=== PATIENT | female | born 1980 | race Caucasian/White ===

== ENCOUNTER → 2019-02-18 15:43 | Outpatient (CLI) | payer OTHER, SELFPAY ==
[2019-02-12 15:56] VITALS: BMI 26.2
[2019-02-18 16:05] LABS: Absolute Neutrophil Count 4.2 X10^3/uL (2.0-7.7); Basophil# 0.07 X10^3/uL; Basophil% 1.1 % (0-1); Eosinophil# 0.21 X10^3/uL; Eosinophils% 3.2 % (0-5); Hematocrit 41.8 % (37-47); Hemoglobin 14.1 g/dL (12.0-15.0); Mean Corp Hgb Conc 33.7 g/dL (32-36); Mean Corpuscular Hgb 32.1 pg (27.0-32.0); Mean Corpuscular Volume 95.2 fL (81-99); Mean Platelet Vol. 9.1 fl (6.2-12.0); Monocyte# 0.55 X10^3/uL; Monocyte% 8.4 % (0-10); NRBC Flagged by Analyzer 0 % (0-5); Neutrophil # 4.17 X10^3/uL (2.7-7.7); Platelet Count 229 K/mm3 (150-450); RBC Distribution Width CV 11.9 % (11.6-14.6); RBC Distribution Width SD 41.4 fl (35.1-43.9); Red Blood Count 4.39 M/mm3 (4.2-5.4); White Blood Count 6.5 K/mm3 (4.4-11.0)
[2019-02-18 18:04] LABS: AST(SGOT) 132 U/L (15-37); Alanine Aminotransfer ALT/SGPT 130 U/L (13-56); Albumin, Serum 3.8 g/dL (3.2-5.0); Alkaline Phosphatase 81 U/L (45-117); Anion Gap 8 (5-15); BUN 6 mg/dL (7-18); Calcium,Total 8.9 mg/dL (8.5-10.1); Chloride 105 mmol/L (98-107); Creatinine, Serum 0.85 mg/dL (0.55-1.02); EST Glomerular Filtration Rate 80 mL/min (>60); Est Glom Filt Rate - Afr Amer 97 mL/min (>60); Glucose 98 mg/dL (74-106); Potassium 4.4 mmol/L (3.5-5.1); Protein, Total 7.8 g/dL (6.4-8.2); Sodium Level 138 mmol/L (136-145); T4 Free Direct 0.86 ng/dL (0.76-1.46); Thyroid Stim Hormone (TSH) 2.45 uIU/mL (0.358-3.74)
== END ==
PROVIDERS: Family Provider Internal Medicine; PCP Internal Medicine; Referring Provider Internal Medicine; Visit Provider Internal Medicine
DX: F32.9 Major depressive disorder, single episode, unspecified (principal); F41.9 Anxiety disorder, unspecified
CPT/HCPCS: 36415; 80053; 84439; 84443; 85025

== ENCOUNTER 2020-07-25 11:04 | Inpatient (IN) | payer OTHER, SELFPAY ==
[2019-04-20 15:58] VITALS: BMI 26.2
[2020-07-25] VITALS (8 sets, daily range): BP systolic 113–155; BP diastolic 81–91; PULSE 72–97; RESP 16–18; TEMP 36–36.9; O2SAT 96–100; BMI 23.5
--- NOTE | 2020-07-25 11:14 | EDS_ITS ---
HPI History of Present Illness Chief Complaint: Substance Abuse Informant: patient Narrative Narrative: Patient presents today requesting alcohol detox. She states that she has been abusing alcohol for many many years. She has never been through detox before. She drinks about 2-3 bottles of wine per day. She denies ever having an alcohol withdrawal seizure. She states she has been able to go a few days without drinking but gets shakiness and sweats and anxiety. Her last drink was this morning. She was referred here by [address] [place] [address] Medical History (Updated 07/25/20 @ 12:[address] Nikko Sweeney MD) Alcohol abuse Anxiety Depression Hx of renal calculi Hx: UTI (urinary tract infection) Home Medications sertraline 50 mg tablet 50 mg PO DAILY #90 tablet 06/23/20 [Rx Last Taken Unknown] Allergy/AdvReac Type Severity Reaction Status Date / Time No Known Allergies Allergy Verified 07/25/20 11:07 Family History Other Alcohol abuse Anxiety Breast cancer Colon cancer Depression Diabetes Social History Smoking Status: Former smoker alcohol intake: current alcohol intake frequency: a few times a week substance use type: does not use ROS ROS ED Constitutional Constitutional ED: Denies chills or fever(s) Eyes Eyes: Denies blurry vision, change in vision or diplopia ENT ENT ED: Denies ear pain, rhinorrhea or sore throat Cardiovascular Cardiovascular: Denies chest pain or palpitations Respiratory/Chest Respiratory/Chest: Denies cough, dyspnea or sputum Gastrointestinal Gastrointestinal: Denies abdominal pain, diarrhea, nausea or vomiting Genitourinary Genitourinary ED: Denies dysuria, hematuria or urinary frequency Musculoskeletal Musculoskeletal: Denies back pain or neck pain Integumentary Denies change in pigmentation or rash Neurologic Neurologic: Denies headache(s), numbness or weakness Psychiatric Psychiatric: Denies anxiety or depression Endocrine Endocrinology: Denies polydipsia or polyuria EXAM Physical Exam Const Vital Signs: 07/25/20 11:05 07/25/20 11:38 Temperature 96.8 F L 97.9 F Temperature Source Temporal Temporal Pulse Rate 97 82 Respiratory Rate 16 18 Blood Pressure 155/88 H 131/91 H Blood Pressure Mean 110 104 Blood Pressure Source Monitor Blood Pressure Position Semi-Fowlers Blood Pressure Location Right Arm Pulse Ox 98 96 Oxygen Delivery Method Room Air Room Air Positive well nourished and well developed General Appearance ED: well developed and NAD HEENT Reports moist mucous membranes normocephalic and atraumatic; Negative for tenderness Eyes PERRL and EOMs intact bilaterally Neck supple and no JVD Chest Wall Chest: Negative for tenderness Resp normal respiratory effort and clear to auscultation bilaterally Effort and Inspection: Negative for respiratory distress Cardio regular rate, regular rhythm and no murmurs Rate: regular rate Rhythm: regular rhythm GI soft to palpation, non-tender and non-distended Palpation: soft Back/Spine no CVA tenderness and no thoracic nor lumbar tenderness Cervical Spine: Negative for cervical spine tenderness Extremity normal to inspection and full ROM General Extremety ED: Negative for tenderness Neuro oriented x3, CN's II-XII intact bilaterally and no sensory deficits noted Sensorium / Orientation: awake and alert Motor Exam: strength 5/5 throughout Psych mental status grossly normal Skin no rashes or lesions noted MDM MDM MDM Narrative Medical decision making narrative: The patient's initial CIWA score was 13. Laboratory studies so far are unremarkable sent for potassium 3.4 and AST is 128. Patient was discussed with hospitalist for admission for alcohol dependence and detoxification Lab Data Labs: Laboratory Results - last 24 hr 07/25/20 07/25/20 11:35 11:35 WBC 5.9 RBC 4.39 Hgb 14.7 Hct 41.7 MCV 95.0 MCH 33.5 H MCHC 35.3 RDW Std Deviation 41.0 RDW Coeff of Alisa 11.7 Plt Count 155 MPV 9.0 Immature Gran % (Auto) 0.200 Neut % (Auto) 79.1 H Lymph % (Auto) 14.6 L [place] % (Auto) 4.5 Eos % (Auto) 0.8 Baso % (Auto) 0.8 Absolute Neuts (auto) 4.7 Absolute Lymphs (auto) 0.87 Nucleated RBC % 0 Sodium 136 Potassium 3.4 L Chloride 102 Carbon Dioxide 25.0 Anion Gap 9 BUN 8 Creatinine 0.87 Estim Creat Clear Calc 86.10 Est GFR (MDRD) Af Amer 94 Est GFR (MDRD) Non-Af 78 BUN/Creatinine Ratio 9.2 L Glucose 102 Calcium 9.0 Total Bilirubin 0.60 AST 128 H ALT 48 Alkaline Phosphatase 78 Total Protein 8.3 H Albumin 4.0 Globulin 4.3 H Albumin/Globulin Ratio 0.9 Discharge Plan Triage Chief Complaint: Substance Abuse ED Provider: Nikko Sweeney Dx/Rx/DC Orders Clinical Impression: Alcohol dependence Prescriptions: No Action sertraline 50 mg tablet 50 mg PO DAILY Qty: 90 RF: 0 Primary Care Provider: Janny Mcdonnell Referrals: Janny Mcdonnell MD [Primary Care Provider] - Disposition Disposition: Acute Care Hospital [facility]
[2020-07-25 11:52] LABS: Absolute Lymphocyte Count 0.87 X10^3/uL (0.83-4.51); Absolute Neutrophil Count 4.7 X10^3/uL (2.0-7.7); Basophil# 0.05 X10^3/uL; Basophil% 0.8 % (0-1); Eosinophil# 0.05 X10^3/uL; Eosinophils% 0.8 % (0-5); Hematocrit 41.7 % (37-47); Hemoglobin 14.7 g/dL (12.0-15.0); Lymphocyte # 0.87 X10^3/ul (0.83-4.51); Lymphocyte % 14.6 % (19-41); Mean Corp Hgb Conc 35.3 g/dL (32-36); Mean Corpuscular Hgb 33.5 pg (27.0-32.0); Monocyte# 0.27 X10^3/uL; Monocyte% 4.5 % (0-10); NRBC Flagged by Analyzer 0 % (0-5); Neutrophil # 4.69 X10^3/uL (2.7-7.7); Neutrophil % 79.1 % (47-70); Platelet Count 155 K/mm3 (150-450); RBC Distribution Width CV 11.7 % (11.6-14.6); Red Blood Count 4.39 M/mm3 (4.2-5.4); White Blood Count 5.9 K/mm3 (4.4-11.0)
[2020-07-25 12:01] LABS: ALB/GLOB Ratio 0.9 RATIO (0.9-2.4); AST(SGOT) 128 U/L (15-37); Alanine Aminotransfer ALT/SGPT 48 U/L (13-56); Alkaline Phosphatase 78 U/L (45-117); Anion Gap 9 (5-15); BUN 8 mg/dL (7-18); BUN/Creat Ratio 9.2 RATIO (10-20); Chloride 102 mmol/L (98-107); Creatinine, Serum 0.87 mg/dL (0.55-1.02); EST Glomerular Filtration Rate 78 mL/min (>60); Est Glom Filt Rate - Afr Amer 94 mL/min (>60); Globulin 4.3 g/dL (2.2-4.2); Glucose 102 mg/dL (74-106); Potassium 3.4 mmol/L (3.5-5.1); Protein, Total 8.3 g/dL (6.4-8.2); Sodium Level 136 mmol/L (136-145)
--- NOTE | 2020-07-25 12:19 | CM.ED ---
SOCIAL WORK Referral Source: Self-referral Reason for Consult: Substance Abuse- requesting detox from alcohol Met with patient in room. Introduced role and reason for referral. Patient reports has signed [facility] agreement. Patient states was referred by Bg with [facility]. Patient states last drink was at 7:30a. Patient denies any questions or concerns at this time. Call to [place] with [facility] to update on patient's admission to [facility]. Plan: Admit to [facility] Frederick Lewis, [employer], CUSTOMER SOLUTIONS TEAMMATE
[2020-07-25 12:43] LABS: Amphetamine Urine VISTA NEGATIVE (<1000 ng/mL); Barbiturate Urine VISTA NEGATIVE (< 200 ng/mL); Benzodiazepine Urine VISTA NEGATIVE (< 200 ng/mL); Cocaine Urine VISTA NEGATIVE (< 300 ng/mL); Ecstacy Urine VISTA NEGATIVE (< 500 ng/mL); Methadone Urine VISTA NEGATIVE (< 300 ng/mL); PCP Urine VISTA NEGATIVE (< 25 ng/mL); THC Urine VISTA NEGATIVE (< 50 ng/mL); Vista UDS pH Range 5
--- NOTE | 2020-07-25 12:50 | HP.PCM.HOS_ITS ---
HPI - General General Date of Admission: 07/25/20 HPI Narrative JOSEPH IGNACIO, is a 39 F who presents for alcohol withdrawal from [facility]. Last drink was this AM. Drinks 2-3 bottles of wine/day. No current symptoms. [facility] Medical History Alcohol abuse Anxiety Depression Hx of renal calculi Hx: UTI (urinary tract infection) Home Medications sertraline 50 mg tablet 50 mg PO DAILY #90 tablet 06/23/20 [Rx Last Taken Unknown] Allergy/AdvReac Type Severity Reaction Status Date / Time No Known Allergies Allergy Verified 07/25/20 11:07 Family History Other Alcohol abuse Anxiety Breast cancer Colon cancer Depression Diabetes Social History Smoking Status: Former smoker alcohol intake: current alcohol intake frequency: a few times a week substance use type: does not use ROS ROS Narrative All review of systems were negative except as mentioned above in the history of present illness and the other review of systems. No tremors. No hallucination. Vital Signs Vital Signs Vital Signs: 07/25/20 11:05 07/25/20 11:38 07/25/20 12:15 Temperature 36.0 C L 36.6 C 36.9 C Temperature Source Temporal Temporal Oral Pulse Rate 97 82 81 Respiratory Rate 16 18 16 Blood Pressure 155/88 H 131/91 H 113/84 H Blood Pressure Mean 110 104 93 Blood Pressure Source Monitor Blood Pressure Position Semi-Fowlers Blood Pressure Location Right Arm Pulse Ox 98 96 97 Oxygen Delivery Method Room Air Room Air Room Air 07/25/20 12:16 Temperature Temperature Source Pulse Rate 81 Respiratory Rate 16 Blood Pressure 113/84 H Blood Pressure Mean 93 Blood Pressure Source Blood Pressure Position Blood Pressure Location Pulse Ox 97 Oxygen Delivery Method Room Air Weight Weight: 68.039 kg Body Mass Index (BMI) 23.5 Physical Exam Const alert and no apparent distress General Appearance: cooperative HEENT normocephalic Neck no lymphadenopathy Resp normal respiratory effort and clear to auscultation bilaterally Cardio regular rate, regular rhythm, S1 normal heart sound and S2 normal heart sound GI normal to inspection, nondistended, normoactive bowel sounds, non-tender and non-distended Neuro oriented x3 Sensorium / Orientation: awake, alert and oriented to person Psych affect normal Lab / Micro Data Attestation: I reviewed the patient's lab results. Result Diagrams: 07/25/20 11:35 07/25/20 11:35 Labs: Laboratory Results - last 24 hr 07/25/20 07/25/20 07/25/20 11:35 11:35 11:35 WBC 5.9 RBC 4.39 Hgb 14.7 Hct 41.7 MCV 95.0 MCH 33.5 H MCHC 35.3 RDW Std Deviation 41.0 RDW Coeff of Alisa 11.7 Plt Count 155 MPV 9.0 Immature Gran % (Auto) 0.200 Neut % (Auto) 79.1 H Lymph % (Auto) 14.6 L [place] % (Auto) 4.5 Eos % (Auto) 0.8 Baso % (Auto) 0.8 Absolute Neuts (auto) 4.7 Absolute Lymphs (auto) 0.87 Nucleated RBC % 0 Sodium 136 Potassium 3.4 L Chloride 102 Carbon Dioxide 25.0 Anion Gap 9 BUN 8 Creatinine 0.87 Estim Creat Clear Calc 86.10 Est GFR (MDRD) Af Amer 94 Est GFR (MDRD) Non-Af 78 BUN/Creatinine Ratio 9.2 L Glucose 102 Calcium 9.0 Total Bilirubin 0.60 AST 128 H ALT 48 Alkaline Phosphatase 78 Total Protein 8.3 H Albumin 4.0 Globulin 4.3 H Albumin/Globulin Ratio 0.9 Urine Opiates Screen Urine Methadone Screen Ur Barbiturates Screen Ur Phencyclidine Scrn Ur Amphetamines Screen U Methamphetamin-MDMA U Benzodiazepines Scrn Urine Cocaine Screen U Cannabinoids Screen Ur Drug Screen Comment Ethyl Alcohol 128.0 07/25/20 11:50 WBC RBC Hgb Hct MCV MCH MCHC RDW Std Deviation RDW Coeff of Alisa Plt Count MPV Immature Gran % (Auto) Neut % (Auto) Lymph % (Auto) [place] % (Auto) Eos % (Auto) Baso % (Auto) Absolute Neuts (auto) Absolute Lymphs (auto) Nucleated RBC % Sodium Potassium Chloride Carbon Dioxide Anion Gap BUN Creatinine Estim Creat Clear Calc Est GFR (MDRD) Af Amer Est GFR (MDRD) Non-Af BUN/Creatinine Ratio Glucose Calcium Total Bilirubin AST ALT Alkaline Phosphatase Total Protein Albumin Globulin Albumin/Globulin Ratio Urine Opiates Screen NEGATIVE Urine Methadone Screen NEGATIVE Ur Barbiturates Screen NEGATIVE Ur Phencyclidine Scrn NEGATIVE Ur Amphetamines Screen NEGATIVE U Methamphetamin-MDMA NEGATIVE U Benzodiazepines Scrn NEGATIVE Urine Cocaine Screen NEGATIVE U Cannabinoids Screen NEGATIVE Ur Drug Screen Comment Ethyl Alcohol Assessment & Plan Assessment/Plan (1) Alcohol dependence: PLAN: 1. acute alcohol withdrawal * has been drinking since 14 yo. Currently drinking 2-3 bottles/day. * phenobarbital taper * additional medication for somatic symptoms associated with withdrawal 2. VTE prophylaxis: low risk. Visit Charges Inpatient E&M: 56313 Init Hosp L2
[2020-07-25] MEDS: Phenobarbital 32.4 MG Tablet 64.8 MG PO ×3 (14:45→22:24)
[2020-07-26 01:16] VITALS: BP 117/80; PULSE 76; RESP 18; TEMP 36.8; O2SAT 99
[2020-07-26] MEDS: Phenobarbital 32.4 MG Tablet 64.8 MG PO ×6 (01:33→22:48)
[2020-07-26 05:47] VITALS: BP 110/78; PULSE 73; RESP 18; TEMP 36.8; O2SAT 99
[2020-07-26] MEDS: Folic Acid 1 MG Tablet PO (09:21)
[2020-07-26 10:00] VITALS: BP 140/94; PULSE 76; RESP 18; TEMP 36.9; O2SAT 100
--- NOTE | 2020-07-26 10:44 | ADDICTION ---
This inspector automatic typewriter met with PT to conduct ASAM, MSE, AUDIT assessments and to plan for d/c. PT A+Ox4 and participated actively. All assessments completed, faxed to [facility] and placed in PT's chart. PT plans to f/u with individual counselor at [facility] for follow-up counseling services. PT did not indicate a need for transportation post d/c from [facility].
[2020-07-26 14:00] VITALS: BP 128/95; PULSE 72; RESP 16; TEMP 36.9; O2SAT 100
--- NOTE | 2020-07-26 14:04 | PN.HOSP_ITS ---
Subjective Subjective Feeling better overall. Denies any tremor or headache. Patient would very much like to be discharged on the if not earlier so that she can pick her kids up from her last day of school. Objective Data Objective Data Vital Signs: Vital Signs Temp Pulse Resp BP Pulse Ox 36.9 C 76 18 140/94 H 100 07/26/20 10:00 07/26/20 10:00 07/26/20 10:00 07/26/20 10:00 07/26/20 10:00 Oxygen Delivery Method Room Air Weight: 68 kg Body Mass Index (BMI) 23.5 Intake & Output: Intake and Output for Last 24 Hours 07/24/20 07/25/20 07/26/20 23:59 23:59 23:59 Intake Total 300 / 300 600 / 600 Balance 300 / 300 600 / 600 Lab / Micro Data Result Diagrams: 07/25/20 11:35 07/25/20 11:35 Physical Exam Const alert Exam Limitations: no limitations HEENT Head and Scalp: normocephalic Resp normal respiratory effort and clear to auscultation bilaterally Cardio regular rate, regular rhythm, S1 normal heart sound and S2 normal heart sound GI normal to inspection, nondistended, normoactive bowel sounds, non-tender and non-distended Extremity normal to inspection Assessment & Plan Assessment/Plan (1) Alcohol dependence: QUALIFIERS: Substance use status: uncomplicated Qualified Code(s): F10.20 - Alcohol dependence, uncomplicated PLAN: 1. acute alcohol withdrawal * has been drinking since 14 yo. Currently drinking 2-3 bottles/day. * phenobarbital taper * additional medication for somatic symptoms associated with withdrawal * Seems be doing very well as compared to the . Plan is to continue with the current treatments. Anticipated discharge will be in another 1 to 2 days. 2. VTE prophylaxis: low risk. Visit Charges OBSV E&M: 70871 Observation care discharge
--- NOTE | 2020-07-26 15:03 | CHAPLAIN ---
Type of Pastoral Visit _x__ Initial Visit ___ Follow-up Visit ___ On-call Visit ___ General Patient Visit ___ Spiritual Assessment ___ Family Conference ___ Bereavement ___ Rapid Response ___ Code Blue ___ Other (describe below) Pastoral Care Referral From _x__ Patient ___ Family ___ Nurse ___ Physician ___ Fur Finisher ___ Technical Solutions Engineer ___ Other (describe below) Sacrament/Intervention _x__ Active listening ___ Anointing ___ Yarsanism ___ Bereavement ___ Communion _x__ Suzette exploration ___ _x__ Life review _x__ Prayer ___ Reconciliation ___ Sacrament of Sick _x__ Supportive presence ___ Wedding ___ Other (describe below) Pastoral Comments
[2020-07-26 18:00] VITALS: BP 122/88; PULSE 74; RESP 14; TEMP 36.8; O2SAT 100
[2020-07-26 20:56] VITALS: BP 120/83; PULSE 86; RESP 16; TEMP 36.5; O2SAT 98
[2020-07-27 02:38] VITALS: BP 125/76; PULSE 84; RESP 16; TEMP 36.8; O2SAT 98
[2020-07-27] MEDS: Phenobarbital 32.4 MG Tablet 64.8 MG PO ×3 (02:43→10:30)
[2020-07-27 07:38] VITALS: BP 118/84; PULSE 81; RESP 12; TEMP 36.6; O2SAT 100
[2020-07-27] MEDS: Folic Acid 1 MG Tablet PO (07:45)
--- NOTE | 2020-07-27 08:16 | PCM.DC ---
Discharge Instructions Diet Discharge Diet: No restrictions Activity Discharge Activity: Return to Normal Activity Return to work on:: 07/28/20 Follow Up Care Test Results: Test results from this visit will be discussed in further detail at your follow-up appointment, if applicable. Discharge Plan Admission Admit Date/Time: 07/25/20 12:16 Attending Provider: José Antonio Hernandez Primary Care Provider: Janny Mcdonnell Discharge Orders/Prescriptions Prescriptions: New multivitamin [Super Multivitamin] Tablet 1 tab PO DAILY Qty: 1 RF: 0 Referrals / Follow Up: Janny Mcdonnell MD [Primary Care Provider] - Within 1 Month Martin Camacho [STAFF PHYSICIAN] - Within 1 Week Disposition Disposition (needs filled in before D/C Order can be placed): Home, self care
--- NOTE | 2020-07-27 08:19 | PCM.DC.SUM ---
Providers Date of Admission: 07/25/20 Primary Care Physician: Dr. Janny Mcdonnell MD Reason For Visit: ALCOHOL DEPENDENCE Diagnosis Discharge Diagnosis (1) Alcohol dependence: Status: Acute Code(s): F10.20 - Alcohol dependence, uncomplicated Qualifiers: Substance use status: uncomplicated Qualified Code(s): F10.20 - Alcohol dependence, uncomplicated Medications at Discharge Home Medications multivitamin [Super Multivitamin] 1 tab PO DAILY #1 tab 07/27/20 Hospital Course Operations None Procedures None Summary of Care Provided Minutes Spent on Discharge: Hospital Course: 39-year-old female presents seeking treatment for acute alcohol withdrawal. Patient drinks to 3 bottles of wine per day. Patient was referred by the [facility]. Patient was started on phenobarbital plus other agents to help with somatic complaints. Patient's course was uncomplicated and has done very well during the course of her hospitalization. Patient will be discharged today as she has done very well during her hospitalization. Patient will be discharged home. Patient will be following up with [facility] to continue with counseling. They will also determine if she may be a candidate for Vivitrol as well. Physical Exam Const alert and oriented x3 Constitutional Narrative: up in chair. ABG / Lab / Microbiology Data Result Diagrams: 07/25/20 11:35 07/25/20 11:35 D/C Instructions Discharge Diet: No restrictions Discharge Activity: Return to Normal Activity Return to work on: 07/28/20 Meaningful Use Info Meaningful Use Diagnoses (Choose all that apply): None applicable Discharge Plan Admission Admit Date/Time: 07/25/20 12:16 Attending Provider: José Antonio Hernandez Primary Care Provider: Janny Mcdonnell Discharge Orders/Prescriptions Prescriptions: New multivitamin [Super Multivitamin] Tablet 1 tab PO DAILY Qty: 1 RF: 0 Referrals / Follow Up: Janny Mcdonnell MD [Primary Care Provider] - Within 1 Month Janice[facility]One [STAFF PHYSICIAN] - Within 1 Week Disposition Disposition (needs filled in before D/C Order can be placed): Home, self care Visit Charges Inpatient E&M: 44992 Disch Hosp
--- NOTE | 2020-07-27 11:45 | PHA.DC.MR ---
Pharmacy Service has performed discharge medication reconciliation for this patient. The patient's discharge medication list was reviewed for discrepancies and discrepancies were resolved. Home Medications multivitamin [Super Multivitamin] 1 tab PO DAILY #1 tab 07/27/20
== END 2020-07-27 11:01 | disposition home or self-care (01) | DRG 897 ==
LOC: ED 12:11 → MS3 07-26 07:08
PROVIDERS: Emergency Provider Emergency Medicine; PCP Internal Medicine
DX: F10.239 Alcohol dependence with withdrawal, unspecified (principal); F41.9 Anxiety disorder, unspecified; F32.9 Major depressive disorder, single episode, unspecified; E11.9 Type 2 diabetes mellitus without complications; Z87.891 Personal history of nicotine dependence; Z87.440 Personal history of urinary (tract) infections; Z85.038 Personal history of other malignant neoplasm of large intestine; Z85.3 Personal history of malignant neoplasm of breast; Z87.442 Personal history of urinary calculi; Y90.9 Presence of alcohol in blood, level not specified
CPT/HCPCS: 80053; 80307; 82077; 85025; 99283; A4216